=== PATIENT | female | born 1990 | race Caucasian/White ===

== ENCOUNTER 2017-02-28 15:56 | Emergency (ER) | payer OTHER ==
[~2017-02-28] VITALS: Ht 149.9 cm; Wt 45.9 kg
[~2017-02-28 15:56] MED LIST: FLUOXETINE HCL20 M1 PO; LEVOTHYROXINE125 MCG PO; PREDNISONE20 MG PO; TESSALON PERLE100 MG PO; ZITHROMAX Z-PA250 MG PO
[2017-02-28 16:51] LABS: HEMATOCRIT 37.4 % (36.0-46.0); MCH 28.3 PG (29.0-34.0); MCHC 33.4 G/DL (30.0-36.0); MCV 84.8 FL (83-99); MEAN PLAT.VOLUME 11.9 uM^3 (9.5-12.4); PLATELET COUNT 184 K/uL (156-360); RBC DIS.WIDTH-CV 12.7 % (11.8-14.6); RBC DIS.WIDTH-SD 39.6 % (39-53); RED BLOOD COUNT 4.41 M/uL (3.80-5.20); WHITE BLOOD COUNT 7.2 K/uL (4.1-10.2)
[2017-02-28 17:03] LABS: CHLORIDE 104 mEq/L (99-109); POTASSIUM 3.9 mEq/L (3.7-5.4); SODIUM 138 mEq/L (136-147)
[2017-02-28 17:04] LABS: GLUCOSE 82 mg/dL (70-99)
[2017-02-28 17:06] LABS: ANION GAP 9 MEQ/L (2-14)
[2017-02-28 17:08] LABS: GFR ESTIMATE (CALCULATED) > 59 mL/min/
[2017-02-28 17:09] LABS: UREA NITROGEN (BUN) 8 mg/dL (9-23)
[2017-02-28 18:39] VITALS: BP 94/50
== END 2017-02-28 18:42 | disposition home or self-care (01) ==
LOC: EME 15:56
DX: S09.90XA Unspecified injury of head, initial encounter (principal); M25.512 Pain in left shoulder; V19.9XXA Pedal cyclist (driver) (passenger) injured in unspecified traffic accident, initial encounter; Y93.55 Activity, bike riding; F17.200 Nicotine dependence, unspecified, uncomplicated
CPT/HCPCS: 70450; 71020; 73030; 80048; 85027; 93005; 99281; 99284